=== PATIENT | male | born 1995 | race Caucasian/White ===

== ENCOUNTER → 2017-09-03 | Outpatient (CLI) | payer OTHER ==
--- NOTE | 2017-09-03 09:19 | DIAGNOSTIC IMAGING REPORT ---
R LOWER EXT JOINT WITHOUT CLINICAL HISTORY: 21 years-old Male with M25.561. Subacute right knee pain status post basketball injury 7 weeks prior. Senescent pain and swelling COMPARISON: None available TECHNIQUE: Multiplanar, multisequence MRI of the right knee was performed without intravenous contrast. FINDINGS: MENISCI: There is a complex tear of the posterior junction and posterior horn medial meniscus extending into the posterior meniscal root as seen on images 16 through 22 of series 8 and also images 17 through 22 of series 5. Tear extends both the superior and inferior articular surfaces. Moderate parameniscal edema. No definite parameniscal cyst or displaced fragment. Additionally, there is a complex tear of the body, posterior junction and posterior horn lateral meniscus as seen on images 15 through 21 of series 5 and images 7 through 12 of series 8 with tear extending into the posterior meniscal root. Moderate meniscal edema without parameniscal cyst. There is a suggested flipped meniscal fragment noted adjacent to the posterior horn on image 20 of series 5. CRUCIATE LIGAMENTS: There is edema within the intercondylar notch and within the substance of the anterior cruciate ligament without definite ACL tear identified. PCL is intact. COLLATERAL LIGAMENTS: The popliteus tendon, biceps femoris tendon, fibular collateral ligament and iliotibial band are intact. The superficial and deep components of the medial collateral ligament are intact. EXTENSOR MECHANISM: The quadriceps and patellar tendons are intact. The medial and lateral patellar retinacula are intact. KNEE JOINT: There is a large joint effusion with synovitis. No focal cartilaginous abnormality or osteochondral defect. BONE MARROW: The bone marrow signal is age appropriate. No fracture, marrow edema, or marrow replacing process. SOFT TISSUES: There is a large amount of soft tissue edema medial to the medial gastrocnemius musculature, extending outside the [id number] as seen on image 23 of series 9. Small Mckeon's cyst. IMPRESSION: 1. Complex tear of the posterior horn and posterior junction medial meniscus with extension into the posterior meniscal root. 2. Complex tear of the body, posterior junction and posterior horn lateral meniscus with extension into the posterior meniscal root. Probable flipped meniscal fragment noted adjacent to the posterior horn as above. 3. Edema surrounding the ACL within the intercondylar notch without focal ACL tear identified. 4. Extensive soft tissue edema medial to the medial head gastrocnemius musculature, only partially imaged. Correlate for possible distal muscular injury. 5. Large joint effusion within synovitis. No fracture or osteochondral defect. The above report was generated using voice recognition software. It may contain grammatical, syntax or spelling errors. Electronically signed by: Venancio Laguerre M.D. 09/03/2017 9:17 AM Dictated Date/Time: 09/03/2017 8:44 AM
== END | disposition home or self-care (01) ==
LOC: C.MRI 07:52
PROVIDERS: ATTEND Family Medicine
DX: S83.231A Complex tear of medial meniscus, current injury, right knee, initial encounter (principal); M25.561 Pain in right knee; Y93.67 Activity, basketball; M65.861 Other synovitis and tenosynovitis, right lower leg

== ENCOUNTER → 2017-09-04 | Outpatient (CLI) | payer OTHER | END | disposition home or self-care (01) | LOC: C.RDSM 14:31 | PROVIDERS: ATTEND Orthopaedic Surgery | DX: M25.561 Pain in right knee (principal) ==

== ENCOUNTER → 2017-09-14 | Day surgery (SDC) | payer OTHER ==
[2017-09-08 12:36] VITALS: Ht 182.1 cm; Wt 88.6 kg
[~2017-09-14] VITALS: Ht 182.1 cm; Wt 88.6 kg
[~2017-09-14] MED LIST: ATROPINE SULFATE 0.1 MG/ML 5ML SYR IV PRN; BUPIVACAINE/EPINEPHRINE 0.25% 1:200,000 30 ML VIAL ONE; BUPIVACAINE/EPINEPHRINE 0.5% MPF 1:200,000 30 ML VIAL ONE; CEFAZOLIN 2000MG IV PUSH 10 ML IV SCH; DEXAMETHASONE SOD INJ 4 MG/ML VIAL ONE; EpHEDrine SULFATE INJ 50 MG/ML AMP IV PRN; EpHEDrine SULFATE INJ 50 MG/ML AMP ONE; EpINEphrine HCL INJ 1 MG/ML 5ML SYRINGE ONE; FENTANYL CITRATE INJ 50 MCG/1 ML 2 ML VIAL ONE; HYDROmorphone INJ 1 MG/ML SYR IV PRN; LACTATED RINGER'S 1000ML 1,000 ML IV SCH; LIDO 2%/EPINEPHRINE 1:100000 20 ML VIAL INFIL ONE; LIDOCAINE HCL 2% 2 ML VIAL (20MG/ML) ONE; MIDAZOLAM HCL 1 MG/ML 2ML VIAL ONE; MoRPHine SULFATE 2 MG/ML CARP IV PRN; MoRPHine SULFATE 4 MG/ML 1 ML CARP\\VIAL IV PRN; ONDANSETRON INJ 2 MG/ML 2 ML VIAL IV PRN; ONDANSETRON INJ 2 MG/ML 2 ML VIAL ONE; OXYCODONE/ACETAMINOPHEN 5-325 TAB PO PRN; PROMETHAZINE HCL INJ 25 MG/ML 1 ML VIAL ONE; PROMETHAZINE HCL INJ 6.25 MG in SODIUM CHLORIDE 0.9% 50ML 50 ML IV PRN; PROPOFOL IV EMULSION 10 MG/ML 20 ML VIAL IV ONE; ROPIVACAINE 0.5% 5 MG/ML 30 ML VIAL ONE; SODIUM CHLORIDE 0.9% 1000ML 1,000 ML IV SCH
--- NOTE | 2017-09-14 06:58 | History & Physical Bridge - [place] ---
H&P Re-Evaluation Bridge Note: I have examined the patient, reviewed the History & Physical and in the interval since the performance of the History & Physical I have noted the following changes of clinical significance: No changes noted
--- NOTE | 2017-09-14 11:53 | [facility] Post Operative Brief Note ---
Immediate Operative Summary Operative Date Sep 14, 2017. Pre-Operative Diagnosis Right Knee ACL Tear, Medial & Lateral Meniscal Tears Post-Operative Diagnosis Same Procedure(s) Performed Right Knee Arthroscopic Anterior Cruciate Ligament Reconstruction With Bone Tendon Bone Autograft, Lateral & Medial Meniscal Repairs, Surgeon Dr. Cortes Break Off Worker Surgeon(s) Humza Johnson PA-C Estimated Blood Loss 25ml Findings Unstable medial meniscus tear fixed with 3 Fastfix 360 devices. Complex tear of lateral meniscus debrided to stable margin. Vertical tear of lateral meniscus lateral to the popliteus fixed with one Fastfix 360. Autograft BPTB ACL reconstruction fixed with PEEK interference screws on the femur and tibia Fluids (cc crystalloids) 1200cc Specimens None Drains None Anesthesia General with block Complication(s) None Disposition Recovery Room / PACU
--- NOTE | 2017-09-14 11:58 | [facility] Operative Report ---
Operative Report Operative Date Sep 14, 2017. Pre-Operative Diagnosis Right Knee ACL Tear, Medial & Lateral Meniscal Tears Post-Operative Diagnosis Same Procedure(s) Performed Right Knee Arthroscopic Anterior Cruciate Ligament Reconstruction With Bone Tendon Bone Autograft, Lateral & Medial Meniscal Repairs, Surgeon Dr. Cortes Rigger Helper Surgeon(s) Humza Johnson PA-C Estimated Blood Loss 25ml Findings none Fluids (cc crystalloids) 1200cc Specimens None Complication(s) None Disposition Recovery Room / PACU I attest to the content of the Intraoperative Record and any orders documented therein. Any exceptions are noted below.
--- NOTE | 2017-09-14 12:05 | Discharge Instructions ---
Discharge Instructions Date of Service Sep 14, 2017. Admission Reason for Admission: Right Knee Acl, Medial & Lateral Meniscus Tears Discharge Discharge Diagnosis / Problem: Same as above Discharge Goals Goal(s): Decrease discomfort, Improve function, Increase independence Activity Recommendations Activity Limitations: as noted below Lifting Limitations: until after follow-up appointment Exercise/Sports Limitations: until after follow-up appointment May Resume Sexual Activity: after follow-up appointment Shower/Bathe: tomorrow, keep incision dry Driving or Machine Use: No driving until cleared by Orthopedic Surgeon Weightbearing Status: Right non-weightbearing . Instructions / Follow-Up Instructions / Follow-Up Post-operative Instructions Dear Patient and Family/Friends, Before you are discharged from the hospital, it is important to know what to expect when you get home after surgery. To that end, we have created this sheet of discharge instructions which covers many commonly asked questions. Make sure you go through this sheet in its entirety with your nurse before you are discharged. Please note that we will go over the specifics of your surgery and recovery when you return for your first post-operative visit. Sincerely, Dr. Jhaveri Pain Expect to be in a fair amount of pain after surgery. Remember, our goal is not to eliminate your pain, but to make it tolerable. It is a good idea to stay ahead of your pain by taking the medications you were prescribed once you get home. Typically, the pain starts improving 3-7 days after surgery. You should start weaning off the narcotic pain medication (oxycodone, hydrocodone, hydromorphone, morphine) as soon as your pain improves. Please call our office if your pain is not adequately controlled. Ice Ice your operative site at least 5 times a day for 15-30 minutes at a time. Make sure you have a thin cloth between the ice or cooling unit and your skin to prevent mcknight bite. This is especially important if you received a nerve block. Continue icing your operative site for the first 5-7 days after surgery , then as needed. Diet/Nausea/Vomiting Start by drinking clear liquids and eating crackers. If you can tolerate this, then you may resume your normal diet. If you feel nauseated or vomit, take Zofran/ondansetron (if prescribed). Please call our office if you have intractable nausea or vomiting, or, if after hours, you may go to the Emergency Room for help. Constipation Constipation is a common side effect of narcotic pain medication. If you have not had a bowel movement within 2 days after surgery, we recommend purchasing an over the counter laxative such as Milk of Magnesia, Dulcolax, or Miralax from a local pharmacy, and taking it as instructed. Call our clinic if any questions. Slings and Braces If you were placed in a sling or brace, it must be worn at all times, including sleep. You may remove your sling or brace for physical therapy, home exercises , and showering. The length of time you will be in your brace and range of motion restrictions depends on what surgery you had; these details will be reviewed at your first post-operative appointment. Nerve block The anesthesia team sometimes places a nerve block to help with post-operative pain control. This results in significant numbness and inability to move the extremity. The nerve block usually wears off in 8-12 hours, but sometimes can last up to 24 hours. Please call our office if you are still unable to move your extremity after 24 hours, unless you received a pain pump to take home. Nerve blocks typically wear off quickly, so start taking pain medication as soon as you start feeling soreness near your surgical site. Weight bearing and Range of Motion. Do not bear any weight through your operative extremity immediately after surgery. If you had upper extremity surgery, do not lift anything with that arm. If you are in a knee brace, keep it locked in place until your follow-up. We will discuss your weight bearing, range of motion, and lifting restrictions in detail at your first post-operative appointment. Continuous Passive Motion (CPM) Machine If you were prescribed a CPM machine, it will start after your first post- operative appointment, at which time we will give you instructions on the range of motion settings and duration of treatment Physical therapy You will be given a prescription for physical therapy or occupational therapy at your first post-operative appointment. Typically, patients start therapy within 1 week of surgery Wound care and showering We will inspect your wound at your first post-operative visit, and may do a dressing change at that time. Most patients will be in a water-proof dressing that is removed 14 days after surgery. It is normal to see some dried blood on the dressing. Do not remove your dressing, paper strips or sutures yourself unless you are given permission. Showering is allowed the day after surgery. Do not scrub or remove any dressings. The wound should not be submerged underwater (i.e. in a bathtub or pool) until 4 weeks after surgery JAKE stockings If you were given white stockings, these are to be worn at all times except to shower (on both legs) for the first 2 weeks after surgery. Driving You may not drive while taking narcotic pain medication or while in a cast, splint, sling or brace. You, the patient, need to make the final determination about when you are safe to drive, however, the earliest you may consider driving after surgery is below: Hand/Wrist/Elbow Surgery: 3 days Shoulder Surgery: 2 weeks Hip,/Knee/Ankle Surgery: 4 weeks Fracture repair: 6 weeks Return to Work Your return to work depends on what surgery was done and what type of work you do. Please bring any paperwork your employer needs completed to your first post -operative visit. Also, bring a description of your job duties, as this helps us to understand what risks you may face at work. Travel Avoid long distance travel (greater than 1 hour) in airplanes and cars for the first 6 weeks after surgery. If you must travel, you need to have a Doppler ultrasound done before you travel to rule out a blood clot in your legs. Follow-up You should have a follow-up appointment already scheduled 1-2 days after surgery. If not, please contact our office to make this appointment before you leave the hospital. When to call the office It is normal to have swelling and bruising in the limb that was operated on. This will improve with time. It is also normal to have fevers for the first 2 days after surgery. Reasons you should call your doctor include: Uncontrolled pain; Nausea, vomiting, or constipation that does not improve with medication; Fevers over 101.5, chills, sweats; Drainage or bleeding from the wound; Foul odor; Spreading areas of redness; Any other concerns Current Hospital Diet Patient's current hospital diet: Discharge Diet Recommended Diet: Regular Diet Procedures Procedures Performed: Right Knee Arthroscopic Anterior Cruciate Ligament Reconstruction With Bone Tendon Bone Autograft, Lateral & Medial Meniscal Repairs, Pending Studies Studies pending at discharge: no Medical Emergencies . Who to Call and When: Medical Emergencies: If at any time you feel your situation is an emergency, please call 911 immediately. . Non-Emergent Contact Non-Emergency issues call your: Primary Care Provider Call Non-Emergent contact if: you have a fever, temperature is above 101.5, your pain is not controlled, wound has increased drainage, wound has increased redness, you have any medication questions . "Provider Documentation" section prepared by Zackery Johnson. . VTE Core Measure Inpt VTE Proph given/why not?: Other Anticoagulation (EC Aspirin 81 mg), T.EMichael ALONZO Drug Monitoring Program Search Results: patient reviewed within database, no issues identified, see additional documentation
[2017-09-14] MEDS: FENTANYL CITRATE INJ 50 MCG/1 ML 2 ML VIAL IV PRN ×2 (12:14→12:32)
[2017-09-14 13:18] VITALS: TEMP 36.9
--- NOTE | 2017-09-14 13:35 | Anesthesia Progress Nt - [facility] ---
Anesthesia Post Op Note Date & Time Sep 14, 2017 at 13:35 Vital Signs Pain Intensity: 3 Vital Signs Past 12 Hours Date Time Temp Pulse Resp B/P (MAP) Pulse Ox O2 Delivery O2 Flow Rate FiO2 09/14/17 13:13 84 17 94 09/14/17 13:13 82 17 09/14/17 13:11 37.0 84 16 148/76 96 Room Air 78 09/14/17 13:11 148/76 09/14/17 13:08 79 21 97 09/14/17 13:08 80 21 09/14/17 13:06 140/76 09/14/17 13:03 83 23 96 09/14/17 13:03 83 23 09/14/17 13:01 147/75 09/14/17 12:58 80 18 100 09/14/17 12:58 81 18 09/14/17 12:56 146/82 09/14/17 12:53 84 20 99 09/14/17 12:53 83 20 09/14/17 12:51 143/81 09/14/17 12:48 80 13 09/14/17 12:48 80 13 100 09/14/17 12:46 144/76 09/14/17 12:43 78 18 09/14/17 12:43 78 18 100 09/14/17 12:41 141/76 09/14/17 12:38 72 16 100 09/14/17 12:38 72 16 09/14/17 12:36 146/70 09/14/17 12:33 78 12 09/14/17 12:33 78 12 100 09/14/17 12:31 142/79 09/14/17 12:28 76 18 09/14/17 12:28 77 18 100 09/14/17 12:26 143/74 09/14/17 12:23 74 22 09/14/17 12:23 75 22 100 09/14/17 12:21 137/83 09/14/17 12:18 73 17 100 09/14/17 12:18 74 17 09/14/17 12:16 142/76 09/14/17 12:13 91 17 09/14/17 12:13 75 17 100 09/14/17 12:11 137/80 09/14/17 12:08 85 12 100 09/14/17 12:08 84 12 09/14/17 12:06 141/74 09/14/17 12:03 81 17 09/14/17 12:03 82 17 100 09/14/17 12:01 133/70 09/14/17 12:00 134/68 09/14/17 11:58 36.6 88 12 133/70 100 Mask 09/14/17 08:38 75 09/14/17 08:38 74 21 100 09/14/17 08:37 71 09/14/17 08:37 72 25 99 09/14/17 08:36 112/51 09/14/17 08:32 70 09/14/17 08:32 68 14 98 09/14/17 08:31 127/56 09/14/17 08:31 127/56 09/14/17 08:30 69 11 99 09/14/17 08:30 69 11 99 09/14/17 08:30 71 09/14/17 08:30 71 09/14/17 08:26 122/60 09/14/17 08:26 122/60 09/14/17 08:25 70 09/14/17 08:25 69 15 99 09/14/17 08:25 70 09/14/17 08:25 69 15 99 09/14/17 08:21 121/57 09/14/17 08:21 121/57 09/14/17 08:20 68 40 100 09/14/17 08:20 69 09/14/17 08:20 68 40 100 09/14/17 08:20 69 09/14/17 08:17 123/58 09/14/17 08:17 123/58 09/14/17 08:15 63 09/14/17 08:15 64 15 100 09/14/17 08:15 63 09/14/17 08:15 64 15 100 09/14/17 08:11 128/70 09/14/17 08:11 128/70 09/14/17 08:10 62 09/14/17 08:10 63 31 100 09/14/17 08:10 63 16 128/70 (89) 100 Mask 4 09/14/17 08:10 62 09/14/17 08:10 63 31 100 09/14/17 08:06 131/79 09/14/17 08:06 131/79 09/14/17 08:05 79 0 09/14/17 08:05 79 0 09/14/17 08:00 61 0 09/14/17 08:00 61 0 09/14/17 07:55 61 0 09/14/17 07:55 61 0 09/14/17 07:50 67 0 09/14/17 07:50 67 0 09/14/17 07:45 64 0 09/14/17 07:45 64 0 09/14/17 07:40 60 0 09/14/17 07:40 60 0 09/14/17 07:35 69 0 09/14/17 07:35 69 0 09/14/17 07:30 68 0 09/14/17 07:30 68 0 09/14/17 07:25 18 09/14/17 07:25 61 18 09/14/17 07:25 61 18 09/14/17 07:25 18 09/14/17 06:44 36.6 76 16 124/66 (85) 97 Room Air Notes Mental Status: alert / awake / arousable, participated in evaluation Pt Amnestic to Procedure: Yes Nausea / Vomiting: adequately controlled Pain: adequately controlled Airway Patency, RR, SpO2: stable & adequate BP & HR: stable & adequate Hydration State: stable & adequate Anesthetic Complications: no major complications apparent Block working well in pacu. Patient has moderate pain but it is all posterior. Manageable on oral medications.
--- NOTE | 2017-09-14 14:34 | OPERATIVE REPORT ---
DATE OF OPERATION: 09/14/2017 PREOPERATIVE DIAGNOSIS: Right knee anterior cruciate ligament tear with medial and lateral meniscus tears. POSTOPERATIVE DIAGNOSIS: Right knee anterior cruciate ligament tear with medial and lateral meniscus tears. OPERATIONS PERFORMED: 1. Right knee anterior cruciate ligament bone-patellar tendon-bone autograft reconstruction. 2. Right knee medial meniscus repair. 3. Right knee lateral meniscus repair. SURGEON: Orlando Jhaveri MD. PERFECT BINDER SETTER: ROBERT Ruiz. ANESTHESIA: General with adductor canal block and local. INTRAVENOUS FLUIDS: 1200 mL crystalloid. IMPLANTS: 1. Four FasT-Fix 360 all-inside meniscal suturing devices. 2. Two Arthrex PEEK screws, 8 x 23 mm. SPECIMENS: None. COMPLICATIONS: None. INDICATIONS: Zackery is a healthy 21-year-old male at [facility], who had an injury playing basketball and has had lateral knee pain since. He has a history of an ACL injury while in high school. His exam is significant for positive Sandrita's, positive Carolyn's test referable to the lateral aspect of the knee. MRI shows ACL, medial and lateral meniscus tears. I had a long discussion with him about the risks and benefits of surgery, alternatives to surgery, and expected outcomes. After reviewing all these, he elected to proceed with surgery. All questions were answered. Informed consent was signed. DESCRIPTION OF PROCEDURE: The patient was identified in the preoperative holding area, where his surgical site was marked. He was given an adductor canal block by Anesthesia and brought back to the main operating room, where he was placed on the operating room table and general anesthesia was administered. All bony prominences were padded. Perioperative antibiotics were administered. He was prepped and draped in a normal sterile fashion. Prior to incision, a multidisciplinary time-out was called. All in the room were in agreement. We began by performing an exam under anesthesia. This showed a positive Sandrita's and a positive pivot shift maneuver. We therefore proceeded to harvest the bone-patellar tendon-bone graft. The leg was exsanguinated with Esmarch bandage and the tourniquet was inflated to 250 mmHg. A 6 cm incision was made from the distal pole of the patella down on to the tibial tubercle. We dissected through the subcutaneous tissues down to the level of the paratenon. The full-thickness skin flaps were raised. We then incised through the paratenon and identified the width of the tendon, which was 30 mm. We then used a 10 mm parallel blade knife to incise from the patella down on to the tibial tubercle. Next, the knee was brought into extension and 20 mm was measured up on to the tibial tubercle as well as down onto the patellar tendon, marked out with electrocautery. Oscillating saw was used to harvest bone blocks from the patella as well as the proximal tibia. The graft was then dissected free from the underlying fat pad. It was prepared on the back table and sized to a size 10 graft. Next, the arthroscope was inserted through an anterolateral portal through the previously created incision. A low anteromedial portal was created under direct visualization. We then performed a diagnostic arthroscopy. Diagnostic arthroscopy findings were as follows: 1. The undersurface of the patella was normal. 2. The trochlea was normal. 3. The medial gutter was free of loose bodies. 4. There was a small loose body, less than 5 mm in the lateral gutter. 5. The ACL was ruptured off the lateral wall of the femur and scarred to the PCL. The PCL was intact. 6. The medial compartment showed an unstable tear of the posterior horn of the medial meniscus. The cartilage of the medial femoral condyle and medial tibial plateau were intact. 7. The lateral compartment showed a complex tear of the posterior horn extending into the body as well as into the root. After debriding the unstable fragments, there was a small vertical tear just lateral to the popliteus tendon. The lateral tibial plateau showed a small area of grade 2 chondromalacia. Having completed our diagnostic arthroscopy, we then introduced the meniscal biters which were used to debride the lateral meniscus radial component back to the root. There was a fragment that had flipped up into the gutter, which was removed with the shaver. He still had approximately 50%-60% of his meniscus remaining. There was a small vertical tear on the superior surface of the lateral meniscus that was just lateral to the popliteus tendon. I therefore rasped the tear and ajacent synovium, and placed a horizontal all- inside Fast-Fix 360 suture to stabilize this. Excellent fixation was obtained. We then moved into the medial compartment. A 90 degree rasp was used to rasp the tear from both the undersurface and the superior surface to promote healing. We then placed 3 horizontal FasT-Fix suturing devices to fixate the medial meniscus tear. Excellent fixation was obtained. Next, the ACL stump was debrided. A small notchplasty was performed to improve visualization. We marked out the tibial insertion of the ACL. The tibial drill guide was set on the downslope of the medial tibial spine and set at 55 degrees. A small stab incision of about 2 cm was made on the proximal medial tibia. The 2.4-mm guidewire was drilled up through the anatomic insertion of the ACL. A 10 mm reamer was then used to ream the tibial tunnel. Periosteum was removed from the tunnel aperture into the joint with cautery and biters as well as a shaver. Next, the bone plug was placed in the tibial tunnel and the femoral drill guide for the FlipCutter was placed at the anatomic insertion of the ACL. The FlipCutter was drilled down into the knee. We were happy with its position, so the guide was tapped into the bone. We then retro-drilled to a depth of 25 mm. The FlipCutter was then removed and a FiberStick was placed down into the knee and pulled out through the tibial tunnel to use to shuttle our sutures. Next, the bone-patellar tendon-bone graft was shuttled up into the knee. The sign board erector was placed and the knee was brought into hyperflexion. After using the sign board erector, the nitinol guidewire was placed followed by an 8-mm tap. We then placed our 8 x 23 mm PEEK Arthrex Tenodesis screw in the femoral tunnel. Next, the arthroscope was removed from the knee and the knee was brought out in full extension. The bone plug came just to the edge of the bone tunnel, and so an 8 x 23 mm Tenodesis screw was opened up. The nitinol guidewire was placed adjacent to the bone plug and the 7-mm tap was used to start the course of the screw. We then placed our 8 x 23 mm PEEK Tenodesis screw in the tibia with the knee in full extension. A Sandrita's test was then performed, which was normal. He no longer had a pivot shift. The scope was placed back into the knee and the graft was appropriately tensioned and did not impinge on the roof of the notch in full extension. A 5.5-mm cannula was placed and any bone fragments were irrigated out from the knee. The arthroscope was then removed and we began to close. Bone graft from the harvest was packed into the patellar tendon defect. The paratenon was closed with a running 3-0 Vicryl. The deep dermis was closed with inverted 3-0 Vicryl. The 3-0 Monocryl in a subcuticular fashion was used for all the portals. Steri-Strips were applied. About 30 mL of ropivacaine was injected into the incision sites as well as 10 mL into the knee. The 4 x 4 and 2 x 2 dressings as well as Tegaderms were placed followed by a cotton roll and an Darien wrap. The patient was placed into a hinged knee brace locked in full extension. He was awoken from anesthesia and transferred to the recovery room in stable condition. POSTOPERATIVE COURSE: The patient will return to clinic tomorrow for physical therapy. We will inspect his wound. He will start physical therapy twice a week for the next 4-6 months minimum. He will be on the simple meniscus repair protocol in addition to the ACL autograft physical therapy protocol. He is on aspirin for DVT prophylaxis. I attest to the content of the Intraoperative Record and any orders documented therein. Any exceptions are noted below. ROSANAD
[2017-09-14 14:52] VITALS: BP 135/81; PULSE 73; O2SAT 100
== END | disposition home or self-care (01) ==
LOC: X.SURG 06:21
PROVIDERS: ATTEND Orthopaedic Surgery
DX: S83.511A Sprain of anterior cruciate ligament of right knee, initial encounter (principal); S83.281A Other tear of lateral meniscus, current injury, right knee, initial encounter; S83.241A Other tear of medial meniscus, current injury, right knee, initial encounter; X58.XXXA Exposure to other specified factors, initial encounter; Y93.67 Activity, basketball

== ENCOUNTER → 2017-10-28 | Outpatient (CLI) | payer OTHER | END | disposition home or self-care (01) | LOC: C.RDSM 14:00 | PROVIDERS: ATTEND Orthopaedic Surgery | DX: Z98.890 Other specified postprocedural states (principal) ==